=== PATIENT | female | born 1985 | race Two or more races ===

== ENCOUNTER 2022-08-02 09:08 | Emergency (ER) | payer MEDICAID ==
[~2022-08-02] VITALS: Ht 172.7 cm; Wt 90.7 kg
[2022-08-02 09:20] VITALS: BP 129/95
--- NOTE | 2022-08-02 09:49 | NUR ---
DR MORENO AT BEDSIDE FOR EVAL
[2022-08-02] MEDS ORDERED: LIDOCAINE 5% (PATCH) 1 EA PATCH TP ONE (10:25)
[2022-08-02] MEDS ORDERED: NAPROXEN 250 MG TABLET ONE (10:26)
[2022-08-02] MEDS: NAPROXEN 250 MG TABLET PO ONE (10:34)
[2022-08-02] MEDS: METHOCARBAMOL (750MG) 750 MG TABLET PO SCH (10:35)
[2022-08-02] MEDS: LIDOCAINE 5% (PATCH) 1 EA PATCH TP SCH (10:36)
[2022-08-02] MEDS ORDERED: NAPR-1009 PO (10:52)
[2022-08-02] MEDS ORDERED: METH750T3 PO (10:52)
== END 2022-08-02 11:01 | disposition home or self-care (01) ==
LOC: ER 09:18
DX: M54.9 Dorsalgia, unspecified (principal); Z79.899 Other long term (current) drug therapy